=== PATIENT | male | born 1940 | race Caucasian/White ===

== ENCOUNTER 2016-06-14 06:23 | Day surgery (SDC) | payer BC ==
--- NOTE | ~2016-06-14 | EGD ---
EGD REPORT [facility] [address] [place] [address] NAME: FITO LEWIS : [birth year] STATUS : REG [facility] PAT#: [id number] AGE: 75 ADM/REG DATE : 06/14/16 MR#: [id number] REPORT SERV DATE: 06/14/16 DICTATED BY: NEGRITO TORRES DATE: 06/14/16 REPORT STATUS : Draft TRANSCRIBED BY: [employer] DATE: 06/14/16 [facility] Patient Name: Fito Lewis Date of : 1940 Attending MD: NEGRITO TORRES MD Procedure Date No Time: 06/14/2016 Procedure: Colonoscopy Indications: Screening for colorectal malignant neoplasm Referring MD: DAVID CARDOZA II Medicines: as per anesthesia Complications: No immediate complications. Procedure: Pre-Anesthesia Assessment: - ASA Grade Assessment: III - A patient with severe systemic disease. After I obtained informed consent, the scope was passed under direct vision. Throughout the procedure, the patient's blood pressure, pulse, and oxygen saturations were monitored continuously. The PCF [id number] was introduced through the anus and advanced to the cecum, identified by appendiceal orifice and ileocecal valve. The colonoscopy was performed without difficulty. The patient tolerated the procedure. The quality of the bowel preparation was adequate to identify polyps. Findings: The perianal and digital rectal examinations were normal. Internal hemorrhoids were found during endoscopy and were mild. Impression: - Internal hemorrhoids. Recommendation: - Continue present medications. Procedure Code(s): --- Professional --- 35001, Colonoscopy, flexible, proximal to splenic flexure; diagnostic, with or without collection of specimen(s) by brushing or washing, with or without colon decompression (separate procedure) Diagnosis Code(s): --- Professional --- K64.8, Other hemorrhoids Z12.11, Encounter for screening for malignant neoplasm of colon CPT copyright 2013 [employer]. All rights reserved. EGD REPORT [facility] [address] [place] [address] NAME: FITO LEWIS : 42 STATUS : REG [facility] PAT#: [id number] AGE: 75 ADM/REG DATE : 06/14/16 MR#: [id number] REPORT SERV DATE: 06/14/16 DICTATED BY: NEGRITO TORRES. DATE: 06/14/16 REPORT STATUS : Draft TRANSCRIBED BY: [employer] DATE: 06/14/16 The codes documented in this report are preliminary and upon child care group leader review may be revised to meet current compliance requirements. NEGRITO TORRES MD 06/14/2016 8:52 AM This report has been signed electronically. Number of Addenda: 0 Note Initiated On: 06/14/2016 8:16 AM Scope Withdrawal Time 0 hours 8 minutes 43 seconds [address] [place] [address]
[~2016-06-14 06:23] MED LIST: ASA5GR PO; CALTRA600D PO; FISH-EPA1000 MG PO; LEVOTHYROXIN75 MCG PO; MULTIPLE VIT PO; UNISOM25 MG OR
== END 2016-06-14 23:59 | disposition home or self-care (01) ==
LOC: DMU 06:23
PROVIDERS: Internal Medicine Gastroenterology
PROC: 0DJD8ZZ Inspection of Lower Intestinal Tract, Via Natural or Artificial Opening Endoscopic (ICD-10-PCS; principal; 2016-06-14 08:00)
DX: Z12.11 Encounter for screening for malignant neoplasm of colon (principal); K64.8 Other hemorrhoids; E03.9 Hypothyroidism, unspecified; Z98.890 Other specified postprocedural states; Z85.828 Personal history of other malignant neoplasm of skin; Z95.0 Presence of cardiac pacemaker; Z87.891 Personal history of nicotine dependence; Z88.5 Allergy status to narcotic agent; Z79.82 Long term (current) use of aspirin; Z79.899 Other long term (current) drug therapy